=== PATIENT | female | born 1965 | race Caucasian/White ===

== ENCOUNTER 2019-08-09 13:04 | Emergency (ER) | payer BC ==
[~2019-08-09] VITALS: Ht 165.1 cm; Wt 72.6 kg
--- NOTE | 2019-08-09 13:05 | NUR ---
Placed in room 1 . Placed on installation coordinator, blood pressure machine and pulse oximeter. To gown for exam. Side rails up. Assumed care.
--- NOTE | 2019-08-09 13:05 | NUR ---
Patient came in with complaints of difficulty breathing, neausea but denies vomitting. Patient is also complaining of dingling sensation bilateral fingertips. Patient is not presenting any signs of acute distress. O2 stats at 100.
[2019-08-09 13:10] VITALS: BP_SYST 127
--- NOTE | 2019-08-09 13:10 | NUR ---
ER Dr. Hagan at bedside examining patient.
[2019-08-09] MEDS ORDERED: LORazepam 2 MG/ML VIAL IM ONE (13:15)
--- NOTE | 2019-08-09 14:30 | NUR ---
Patient given written and verbal discharge instructions and verbalizes understanding. ER MD discussed with patient the results and treatment provided. Patient in stable condition. ID arm band removed. Rx Zofran of given. Patient educated on pain management and to follow up with PMD. Pain Scale 0/10 Opportunity for questions provided and answered. Medication side effect fact sheet provided.
[2019-08-09 14:40] VITALS: BP_SYST 127
== END 2019-08-09 14:40 | disposition home or self-care (01) ==
LOC: SED 13:04
DX: F45.8 Other somatoform disorders (principal)
CPT/HCPCS: 96372; 99283; J2060; 93005